=== PATIENT | male | born 2000 | race Caucasian/White ===

== ENCOUNTER 2020-08-05 11:59 | Observation (INO) ==
[2020-08-05] MEDS ORDERED: LEVSIN/MAALOX/LIDOC VISC PO PRN (12:43)
[2020-08-05] MEDS ORDERED: MORPHINE SULFATE INJ 2 MG INJ IVP PRN (12:43)
[2020-08-05] MEDS ORDERED: ZOFRAN INJ 4 MG VIAL IVP PRN (12:43)
[2020-08-05 13:01] LABS: BASOPHILS # (AUTO) 0.1 X10^3/uL (0.0-0.1); BASOPHILS % (AUTO) 0.8 % (0.2-1.0); EOSINOPHILS # (AUTO) 0.4 x10^3/uL (0.0-0.2); EOSINOPHILS % (AUTO) 3.6 % (0.9-2.9); HEMATOCRIT 42.7 % (42.0-54.0); HEMOGLOBIN 14.5 g/dL (13.5-18.0); LYMPHOCYTES # (AUTO) 1.4 X10^3/uL (1.3-2.9); LYMPHOCYTES % (AUTO) 12.9 % (21.0-51.0); MEAN CORPUSCULAR HEMOGLOBIN 27.7 pg (27.0-34.0); MEAN CORPUSCULAR VOLUME 81.4 fL (80.0-100.0); MEAN PLATELET VOLUME 7.9 fL (7.4-11.0); MONOCYTES # (AUTO) 0.7 x10^3/uL (0.3-0.8); MONOCYTES % (AUTO) 6.9 % (0.0-13.0); NEUTROPHILS # (AUTO) 8.1 x10^3/uL (2.2-4.8); NEUTROPHILS % (AUTO) 75.8 % (42.0-75.0); PLATELET COUNT 278 X10^3/uL (150.0-450.0); RED BLOOD COUNT 5.25 X10^6/uL (4.7-6.0); RED CELL DISTRIBUTION WIDTH 12.3 % (11.6-16.5); WHITE BLOOD COUNT 10.7 X10^3/uL (3.6-10.0)
[2020-08-05 13:10] LABS: ALANINE AMINOTRANSFERASE 15 Units/L (12-78); ALBUMIN 3.9 g/dL (3.4-5.0); ALKALINE PHOSPHATASE 77 Units/L (46-116); AMYLASE 46 Units/L (25-115); ASPARTATE AMINO TRANSFERASE 7 Units/L (15-37); BLOOD UREA NITROGEN 13 mg/dL (7-18); CALCIUM 9.1 mg/dL (8.5-10.1); CARBON DIOXIDE 27.8 mmol/L (21-32); CHLORIDE 103 mmol/L (98-107); COR NA(FOR HYPERGLY) 139 mmol/L (136-145); CREATININE 1.13 mg/dL (0.70-1.30); LIPASE 111 Units/L (73-393); SODIUM 139 mmol/L (136-145); TOTAL PROTEIN 7.8 g/dL (6.4-8.2); eGFR NON BLACK RACES > 60 (>60)
[2020-08-05] MEDS: NS 1000 ML 1,000 ML IV SCH (14:20)
[2020-08-05] MEDS: PROTONIX INJ 40 MG VIAL IVP SCH (14:20)
--- NOTE | 2020-08-05 14:22 | RAD ---
HISTORYRUQ PAIN, MID BACK PAIN Relevant Clinical InformationSTUDYACUTE ABDOMEN SERIESCOMPARISONFINDINGSThe trachea is midline. The cardiac silhouette is [unremarkable]. [The lungs are clear without focal mass or consolidation. There is no effusion or pneumothorax.] [The bony thorax is unremarkable].Flat plate and upright evaluation of the abdomen demonstrates a [normal bowel gas pattern]. There is no pneumoperitoneum. No pathological soft tissue mass or calcification can be observed. The bony structures are grossly intact.IMPRESSION1. [No acute cardiopulmonary disease.]2. [No evidence for acute abdominal pathology identified.]Electronically signed by: QAMAR LUNDBERG (Aug 05, 2020 14:21:18)
[2020-08-05] MEDS ORDERED: FLEXERIL TAB 10 MG PO PRN (16:42)
[2020-08-05] MEDS ORDERED: TORADOL 30 MG VIAL IVP PRN (16:50)
--- NOTE | 2020-08-05 16:55 | DR.H&P ---
H&P - History & Physical for Day of: H&P Date: 08/05/20 - Chief Complaint Chief Complaint: INTRACTABLE MID BACK AND ABDOMINAL PAIN, N/V - History of Present Illness History of Present Illness: PT IS 20 WM DIRECT ADMIT FROM DR ONEAL OFFICE WITH CO INTRACTABLE MID BACK PAIN, RADIATES TO EPIGASTRIC AND RUQ AREA. PT REPORTS SEVERE PAIN SINCE WEDNESDAY DAY TAKING MOBIC AND FLEXERIL FOR BACK PAIN WITHOUT IMPROVEMENT. PT CO N/V, APPETITE LOSS. PT HAD TORADOL 60IM IN OFFICE, BP ELEVATED PRIOR TO ADMISSION WITHOUT HS OF HTN. PT HAS BEEN TREATED FOR MID BACK PAIN RECENTLY WITH OUTPT XRAYS AND PHYSICAL THERAPY, AND CHIROPRACTOR CARE, STEROIDS, NSAIDS AND MUSCLE RELAXERS. PT REPORTS PAIN IN BACK WAS IMPROVED THEN RETURNED ON WEDNESDAY WITH ABDOMINAL PAIN WELL. - Past Medical History Past Medical History: GERD - Past Surgical History Surgical History: No History - Family History Family Medical History: Hypertension - Social History Does patient currently use any type of tobacco product: No Have you used tobacco products in the last 12 months: No Type of Tobacco Use: None Does any household member use tobacco: No Alcohol Use: None Drug Use: None - Medications Home Medications: No Known Drug Allergies Allergy (Verified 08/05/20 13:33) CONTINUE taking the following medications cyclobenzaprine 10 mg PO BID PRN 08/05/20 [History] meloxicam 15 mg PO DAILY 08/05/20 [History] methylprednisolone 4 mg PO DIRECTED 08/05/20 [History] pantoprazole 40 mg PO DAILY 08/05/20 [History] - Review of Systems Constitutional: denies: Fever Eyes: No Symptoms Reported ENT: No Symptoms Reported Respiratory: No Symptoms Reported Cardiovascular: No Symptoms Reported Gastrointestinal: Nausea, Vomiting, Abdominal Pain Musculoskeletal: Back Pain Skin: No Symptoms Reported Neurological: No Symptoms Reported - Physical Exam Vital Signs: Temperature 98.7 F Pulse Rate [Brachial] 76 Respiratory Rate 20 Blood Pressure [Right Arm] 128/66 Blood Pressure 132/86 O2 Sat by Pulse Oximetry 99 Oriented: Normal Eyes: Normal Ear: Normal Nose: Normal Throat: Normal Respiratory: Clear Throughout Cardiovascular: Normal : Normal Auscultation: Bowel Sounds: Increased Tenderness: RUQ, Epigastric, Moderate Skin: Decreased Turgur Musculoskeletal: Back:Thoracic Psychiatric: Anxiety Affect: Anxious Speech Pattern: Clear, Appropriate - Assessment/Plan (1) Right upper quadrant abdominal pain Status: Acute Plan: ADMIT, NPO AFTER MIDNIGHT, GALLBLADDER US. PPI THERAPY, GI COCKTAIL, PRN PAIN AND NAUSEA CONTROL. IV HYDRATION, VERIFY HOME MEDICATION. AMYLASE AND LIPASE ON ADMISSION. HPYLORI STOOL SPECIMEN ORDERED (2) Nausea & vomiting Status: Acute (3) Thoracic spine pain Status: Acute (4) Acute gastritis Status: Acute - Allergies Allergies/Adverse Reactions: Allergies Allergy/AdvReac Type Severity Reaction Status Date / Time No Known Drug Allergies Allergy Verified 08/05/20 13:33
[2020-08-05] MEDS: TORADOL 30 MG VIAL IVP SCH (17:56)
[2020-08-05 20:36] LABS: APPEARANCE,URINE SLIGHTLY HAZY (CLEAR); BILIRUBIN,URINE NEGATIVE (NEGATIVE); BLOOD/HEMOGLOBIN,URINE 1+ (NEGATIVE); COLOR,URINE YELLOW (YELLOW); GLUCOSE, URINE NEGATIVE (NEGATIVE); KETONES,URINE NEGATIVE (NEGATIVE); LEUKOCYTE ESTERASE ,URINE NEGATIVE (NEGATIVE); NITRITES,URINE NEGATIVE (NEGATIVE); PROTEIN,URINE 1+ (NEGATIVE); UROBILINOGEN,URINE NORMAL (NORMAL)
[2020-08-05 20:44] LABS: AMORPHOUS SEDIMENT,UR 2+ /HPF (NEGATIVE); BACTERIA,URINE 1+ /HPF (NEGATIVE); GRANULAR CASTS,URINE FEW /LPF (NEGATIVE); RBC,URINE NONE SEEN /HPF (0-3); SQUAMOUS EPITHELIAL CELL,UR RARE /HPF (NEGATIVE)
[2020-08-06] MEDS: TORADOL 30 MG VIAL IVP SCH ×2 (01:20→08:50)
[2020-08-06 05:00] LABS: BASOPHILS # (AUTO) 0.1 X10^3/uL (0.0-0.1); BASOPHILS % (AUTO) 0.9 % (0.2-1.0); EOSINOPHILS # (AUTO) 0.6 x10^3/uL (0.0-0.2); EOSINOPHILS % (AUTO) 7.1 % (0.9-2.9); HEMATOCRIT 39.2 % (42.0-54.0); HEMOGLOBIN 12.9 g/dL (13.5-18.0); LYMPHOCYTES # (AUTO) 1.8 X10^3/uL (1.3-2.9); LYMPHOCYTES % (AUTO) 22.2 % (21.0-51.0); MEAN CORPUSCULAR HEMOGLOBIN 27.3 pg (27.0-34.0); MEAN CORPUSCULAR VOLUME 82.9 fL (80.0-100.0); MEAN PLATELET VOLUME 8.2 fL (7.4-11.0); MONOCYTES # (AUTO) 0.8 x10^3/uL (0.3-0.8); MONOCYTES % (AUTO) 9.8 % (0.0-13.0); NEUTROPHILS # (AUTO) 4.8 x10^3/uL (2.2-4.8); PLATELET COUNT 257 X10^3/uL (150.0-450.0); RED BLOOD COUNT 4.73 X10^6/uL (4.7-6.0); RED CELL DISTRIBUTION WIDTH 12.3 % (11.6-16.5)
[2020-08-06 05:08] LABS: ALANINE AMINOTRANSFERASE 13 Units/L (12-78); ALBUMIN 3.2 g/dL (3.4-5.0); ALKALINE PHOSPHATASE 64 Units/L (46-116); ASPARTATE AMINO TRANSFERASE 8 Units/L (15-37); BLOOD UREA NITROGEN 13 mg/dL (7-18); CALCIUM 8.8 mg/dL (8.5-10.1); CARBON DIOXIDE 30.1 mmol/L (21-32); CHLORIDE 105 mmol/L (98-107); COR CA(FOR HYPOALB) 9.4 mg/dL (8.5-10.1); CREATININE 1.23 mg/dL (0.70-1.30); SODIUM 141 mmol/L (136-145); TOTAL PROTEIN 6.5 g/dL (6.4-8.2); eGFR NON BLACK RACES > 60 (>60)
[2020-08-06] MEDS: NS 1000 ML 1,000 ML IV SCH ×4 (07:39→13:14)
[2020-08-06] MEDS: PROTONIX INJ 40 MG VIAL IVP SCH (08:44)
[2020-08-06] MEDS ORDERED: PROTONIX INJ 40 MG VIAL IVP SCH (09:00)
[2020-08-06] MEDS ORDERED: ZANAFLEX PO PRN (09:00)
[2020-08-06] MEDS: SOLU-Medrol 125 MG VIAL IVP SCH ×2 (09:53→14:41)
--- NOTE | 2020-08-06 11:14 | MRI ---
HISTORYINTRACTABLE MID BACK PAIN beginning 1 month ago, ?prior T-spine fracture 2 years agoSTUDYMRI THORACIC SPINE W/O IV CONTRASTCOMPARISONX-ray 07/09/2020TECHNIQUEMRI of the thoracic spinewithout IV contrast is performed using standard sequences in multiple planes.FINDINGSPossible slight anterior loss of height of T2, less than 10 percent. No abnormal bony signal is seen. There is small left central disc protrusion at at T7-8. This causes cord contact and likely mild effacement. No cord compression is seen.No abnormal cord signal is seen. Flow related artifacts are seen in the CSF in the central canal on the axial T2 weighted images.IMPRESSIONLikely old minimal compression deformity of T2. No evidence of recent compression deformity.Left central disc protrusion at T7-8 causes probable mild cord effacementElectronically signed by: Obdulio Hawkins (Aug 06, 2020 11:12:01)
--- NOTE | 2020-08-06 11:22 | US ---
HISTORYRUQ PAIN, BACK PAINSTUDYGALL BLADDERCOMPARISONNoneTECHNIQUEMultiple weiss scale and color flow Doppler images of the right upper quadrant were obtained.FINDINGSThe liver is normal in size and normal in echotexture. No focal identifiable hepatic mass or intrahepatic biliary ductal dilatation.No stones or sludge in the gallbladder. No gallbladder wall thickening or pericholecystic fluid. The sonographic Yadav's sign is reported as negative by the [employer]. The common bile duct is unremarkable measuring 0.3 cm.Limited visualized portions of the pancreas and IVC are unremarkable.The right kidney appears normal in size measuring up to 10.1 cm. No stones or hydronephrosis.IMPRESSIONUnremarkable right upper quadrant ultrasound.Electronically signed by: ROMMEL LORD (Aug 06, 2020 11:20:15)
[2020-08-06 16:35] VITALS: BP 123/64
== END 2020-08-06 16:30 | disposition home or self-care (01) ==
LOC: OBS → MED/SURG 13:15
PROVIDERS: ADMIT Internal Medicine; ATTEND Internal Medicine

== ENCOUNTER 2021-11-17 11:45 | Observation (INO) ==
--- NOTE | 2021-11-17 12:19 | DR.EXTPAIN ---
HPI Time seen Time Seen by Provider: 11/17/21 12:18 PCP Primary Care Physician: LYNNETTE WOMACK Complaint/Symptoms Chief Complaint:: PT STATES HE ATE ABOUT 3 ORANGES THIS MORNING AND SINCE THEN SOME OF IT HAS BEEN STUCK IN HIS THROAT STATES HE CAN FEEL IT. PT HAS HAD THIS HAPPEN MULITPLE TIMES BEFORE AND HAS HAD HIS THROAT STRETCHED X4 TIMES BY DR ALMONTE EVERY 3 MONTHS BUT IT ONLY LAST ABOUT A WEEK. Self Treatment fo Chief Complaint: STERIOD SHOT AT LYNNETTE WOMACK OFFICE TODAY COVID-19 Coronavirus risk:travel/contact w/high risk person: No Has patient experienced Coronavirus symptoms: No Source History Provided: Patient Mode of arrival Mode of Arrival: Ambulatory Timing Onset of Chief Complaint: 11/17/21 PMH PMH Past Medical History: No Past Medical History: Arthritis and GERD Past Surgical History: No Surgical History: No History Family History History of Family Medical Conditions: No Family Medical History: Coronary Artery Disease and Hypertension Social History Does patient currently use any type of tobacco product: No Have you used tobacco products in the last 12 months: No Type of Tobacco Use: None Does any household member use tobacco: No Do you use any recreational Drugs:: No Lives With: Family Lives Where: Home Travel Risk Coronavirus risk:travel/contact w/high risk person: No Has patient experienced Coronavirus symptoms: No Infectious screening In the last 2 months have you had wt loss of >10#?: NO Have you had fever, night sweats or hemotysis?: No Have you traveled outside the country in the last 6 months?: No Isolation: Standard PE Vital Signs Vitals: Temperature 98.2 F Pulse Rate [Bilateral Radial] 60 Pulse Rate 70 Respiratory Rate 18 Blood Pressure [Left Arm] 132/74 Blood Pressure 132/77 O2 Sat by Pulse Oximetry 100 ROR Labs Reviewed Result Diagrams: 11/17/21 15:00 11/17/21 15:00 Laboratory: WBC 8.4 X10^3/uL (3.6-10.0) 11/17/21 15:00 RBC 4.68 X10^6/uL (4.7-6.0) L 11/17/21 15:00 Hgb 13.9 g/dL (13.5-18.0) 11/17/21 15:00 Hct 39.4 % (42.0-54.0) L 11/17/21 15:00 MCV 84.2 fL (80.0-100.0) 11/17/21 15:00 MCH 29.6 pg (27.0-34.0) 11/17/21 15:00 MCHC 35.1 g/dL (33.0-35.0) H 11/17/21 15:00 RDW 13.1 % (11.6-16.5) 11/17/21 15:00 Plt Count 188 X10^3/uL (150.0-450.0) 11/17/21 15:00 MPV 8.9 fL (7.4-11.0) 11/17/21 15:00 Neut % (Auto) 78.9 % (42.0-75.0) H 11/17/21 15:00 Lymph % (Auto) 13.9 % (21.0-51.0) L 11/17/21 15:00 Duval % (Auto) 6.2 % (0.0-13.0) 11/17/21 15:00 Eos % (Auto) 0.4 % (0.9-2.9) L 11/17/21 15:00 Baso % (Auto) 0.6 % (0.2-1.0) 11/17/21 15:00 Neut # (Auto) 6.6 x10^3/uL (2.2-4.8) H 11/17/21 15:00 Lymph # (Auto) 1.2 X10^3/uL (1.3-2.9) L 11/17/21 15:00 Duval # (Auto) 0.5 x10^3/uL (0.3-0.8) 11/17/21 15:00 Eos # (Auto) 0.0 x10^3/uL (0.0-0.2) 11/17/21 15:00 Baso # (Auto) 0.1 X10^3/uL (0.0-0.1) 11/17/21 15:00 Absolute Nucleated RBC 0.1 /100WBC 11/17/21 15:00 Sodium 139 mmol/L (136-145) 11/17/21 15:00 Corrected Sodium TNP 11/17/21 15:00 Potassium 4.1 mmol/L (3.5-5.1) 11/17/21 15:00 Chloride 104 mmol/L (98-107) 11/17/21 15:00 Carbon Dioxide 28.4 mmol/L (21-32) 11/17/21 15:00 BUN 16 mg/dL (7-18) 11/17/21 15:00 Creatinine 1.12 mg/dL (0.70-1.30) 11/17/21 15:00 Est GFR (MDRD) Af Amer > 60 (>60) 11/17/21 15:00 Est GFR (MDRD) Non-Af > 60 (>60) 11/17/21 15:00 Glucose 97 mg/dL (65-99) 11/17/21 15:00 Calcium 8.6 mg/dL (8.5-10.1) 11/17/21 15:00 Corrected Calcium TNP 11/17/21 15:00 Total Bilirubin 1.10 mg/dL (0.2-1.0) H 11/17/21 15:00 AST 11 Units/L (15-37) L 11/17/21 15:00 ALT 11 Units/L (12-78) L 11/17/21 15:00 Alkaline Phosphatase 46 Units/L (46-116) 11/17/21 15:00 Total Protein 6.7 g/dL (6.4-8.2) 11/17/21 15:00 Albumin 4.2 g/dL (3.4-5.0) 11/17/21 15:00 Globulin 2.5 g/dL (2.5-4.5) 11/17/21 15:00 Albumin/Globulin Ratio 1.7 Ratio (1.1-2.1) 11/17/21 15:00 Opioid Opioid Risk Tool Age (Rommel box if 16-45): No History of Preadolescent Sexual Abuse: No Total: 0 Total Score Risk Category: Low Risk Copyright: Marcus FERRO predicting aberrant behaviors Discharge Plan Discharge Plan Patient Disposition: HOME, SELF-CARE Condition: Stable Prescriptions: No Action amitriptyline 10 mg tablet 1 tab PO QPM sucralfate [Carafate] 1 gram Tablet 1 g PO TID Qty: 60 0RF pantoprazole [Protonix] 40 mg Tablet,Delayed Release (Dr/Ec) 40 mg PO BID Qty: 60 0RF Health Concerns: Post Hospitalization: new medications and changes needed to prevent readmission or further decline. Pt educated and given instructions on all concerns. Plan of Treatment: Continue with present treatment and follow up plan. Pt is to keep follow up appointment as instructed and take medications as ordered. Orders to Discharge Patient Discharge Orders: Transfer (Routine); Ordered 11/17/21 Ordered By: LUCAS MCKAY Follow ups/Referrals Follow ups/Referrals: LYNNETTE WOMACK [Primary Care Provider] - 3 days Instructions Stand Alone Forms: Precautions for COVID19, [facility], Patient Portal, Social Distancing
--- NOTE | 2021-11-17 13:17 | CT ---
HISTORYForeign body lower esophagusSTUDYCT chest without contrastTechnique: Axial noncontrast images with coronal and sagittal reformats. Dose reduction procedures were used with mA/kv adjusted for body size.[id number] tion of the mediastinum demonstrated no evidence for mediastinal masses, enlarged mediastinal or enlarged hilar adenopathy or significant aortic abnormality to the limitations of an unenhanced examination. Visualized trachea is normal. The esophagus is normal in size and configuration and without evidence for masses or radiopaque foreign body. Further evaluation could include barium esophagram. No definite pharyngeal abnormality is identified those portions of the upper abdominal organs visualized were within normal limits to the limitations of an unenhanced examination. No definite skeletal abnormality is identified. Incidental note is made of a pectus excavatum deformity which is a normal variant. Examination of the lung browning demonstrated no significant nodules, masses, alveolar infiltrates, areas of consolidation, peribronchial thickening, or bronchiectasis.IMPRESSIONNo radiopaque esophageal foreign body identifiedNo definite esophageal mass or soft a geode dilatation identified.Lungs clearElectronically signed by: ROMMEL LORD (Nov 17, 2021 13:16:58)
[2021-11-17] MEDS ORDERED: VALIUM INJ IVP ONE (14:49)
[2021-11-17] MEDS ORDERED: GLUCAGEN IVP ONE (14:49)
[2021-11-17] MEDS ORDERED: VALIUM INJ ONE (14:56)
[2021-11-17] MEDS ORDERED: GLUCAGEN ONE (14:56)
[2021-11-17 15:09] LABS: BASOPHILS # (AUTO) 0.1 X10^3/uL (0.0-0.1); BASOPHILS % (AUTO) 0.6 % (0.2-1.0); EOSINOPHILS % (AUTO) 0.4 % (0.9-2.9); HEMATOCRIT 39.4 % (42.0-54.0); HEMOGLOBIN 13.9 g/dL (13.5-18.0); LYMPHOCYTES # (AUTO) 1.2 X10^3/uL (1.3-2.9); LYMPHOCYTES % (AUTO) 13.9 % (21.0-51.0); MEAN CORPUSCULAR HEMOGLOBIN 29.6 pg (27.0-34.0); MEAN CORPUSCULAR HGB CONC 35.1 g/dL (33.0-35.0); MEAN CORPUSCULAR VOLUME 84.2 fL (80.0-100.0); MEAN PLATELET VOLUME 8.9 fL (7.4-11.0); MONOCYTES # (AUTO) 0.5 x10^3/uL (0.3-0.8); MONOCYTES % (AUTO) 6.2 % (0.0-13.0); NEUTROPHILS # (AUTO) 6.6 x10^3/uL (2.2-4.8); NEUTROPHILS % (AUTO) 78.9 % (42.0-75.0); RED BLOOD COUNT 4.68 X10^6/uL (4.7-6.0); RED CELL DISTRIBUTION WIDTH 13.1 % (11.6-16.5); WHITE BLOOD COUNT 8.4 X10^3/uL (3.6-10.0)
[2021-11-17 15:18] LABS: ALANINE AMINOTRANSFERASE 11 Units/L (12-78); ALBUMIN 4.2 g/dL (3.4-5.0); ALKALINE PHOSPHATASE 46 Units/L (46-116); ASPARTATE AMINO TRANSFERASE 11 Units/L (15-37); BLOOD UREA NITROGEN 16 mg/dL (7-18); CALCIUM 8.6 mg/dL (8.5-10.1); CARBON DIOXIDE 28.4 mmol/L (21-32); CHLORIDE 104 mmol/L (98-107); CREATININE 1.12 mg/dL (0.70-1.30); SODIUM 139 mmol/L (136-145); TOTAL PROTEIN 6.7 g/dL (6.4-8.2); eGFR NON BLACK RACES > 60 (>60)
[2021-11-17] MEDS ORDERED: ZOFRAN INJ 4 MG VIAL IVP PRN (17:05)
[2021-11-17] MEDS: NS 1,000 ML IV 1,000 ML IV SCH (17:46)
[2021-11-17] MEDS ORDERED: NS 1,000 ML IV 1,000 ML ONE (17:50)
[2021-11-18] MEDS: NS 1,000 ML IV 1,000 ML IV SCH ×2 (00:41→08:42)
[2021-11-18 05:36] LABS: BASOPHILS # (AUTO) 0.1 X10^3/uL (0.0-0.1); BASOPHILS % (AUTO) 0.6 % (0.2-1.0); EOSINOPHILS % (AUTO) 0.3 % (0.9-2.9); HEMATOCRIT 38.1 % (42.0-54.0); HEMOGLOBIN 13.4 g/dL (13.5-18.0); LYMPHOCYTES # (AUTO) 1.1 X10^3/uL (1.3-2.9); LYMPHOCYTES % (AUTO) 12.5 % (21.0-51.0); MEAN CORPUSCULAR HEMOGLOBIN 29.3 pg (27.0-34.0); MEAN CORPUSCULAR HGB CONC 35.1 g/dL (33.0-35.0); MEAN CORPUSCULAR VOLUME 83.6 fL (80.0-100.0); MEAN PLATELET VOLUME 9.2 fL (7.4-11.0); MONOCYTES # (AUTO) 0.6 x10^3/uL (0.3-0.8); MONOCYTES % (AUTO) 6.6 % (0.0-13.0); NEUTROPHILS # (AUTO) 6.9 x10^3/uL (2.2-4.8); RED BLOOD COUNT 4.56 X10^6/uL (4.7-6.0); RED CELL DISTRIBUTION WIDTH 12.9 % (11.6-16.5); WHITE BLOOD COUNT 8.7 X10^3/uL (3.6-10.0)
[2021-11-18 05:49] LABS: ALANINE AMINOTRANSFERASE 9 Units/L (12-78); ALBUMIN 3.7 g/dL (3.4-5.0); ALKALINE PHOSPHATASE 44 Units/L (46-116); ASPARTATE AMINO TRANSFERASE 8 Units/L (15-37); BLOOD UREA NITROGEN 13 mg/dL (7-18); CALCIUM 8.3 mg/dL (8.5-10.1); CARBON DIOXIDE 27.1 mmol/L (21-32); CHLORIDE 107 mmol/L (98-107); CREATININE 0.93 mg/dL (0.70-1.30); SODIUM 140 mmol/L (136-145); TOTAL PROTEIN 6.2 g/dL (6.4-8.2); eGFR NON BLACK RACES > 60 (>60)
[2021-11-18 09:36] VITALS: BMI 21.1
[2021-11-18] MEDS ORDERED: DIPRIVAN VIAL 20 ML ONE (11:31)
[2021-11-18] MEDS ORDERED: XYLOCAINE 2 % (PLAIN) ONE ×2 (11:31)
[2021-11-18] MEDS ORDERED: VERSED ONE (11:36)
[2021-11-18 13:06] VITALS: BP 113/75
== END 2021-11-18 14:49 | disposition home or self-care (01) ==
LOC: MED/SURG 11:45 → ER 11:45 → MED/SURG 16:39
PROVIDERS: ADMIT Surgery; ATTEND Surgery
DX: K21.00 Gastro-esophageal reflux disease with esophagitis, without bleeding; R13.11 Dysphagia, oral phase; K22.2 Esophageal obstruction; Z87.11 Personal history of peptic ulcer disease